=== PATIENT | male | born 1985 | race Native Hawaiian/Other Pacific Islander ===

== ENCOUNTER → 2016-07-04 | Outpatient (CLI) | payer OTHER | END | disposition home or self-care (01) | LOC: RADPV 13:25 | PROVIDERS: ATTEND Internal Medicine | DX: R76.11 Nonspecific reaction to tuberculin skin test without active tuberculosis (principal) ==

== ENCOUNTER 2017-01-21 00:30 | Emergency (ER) | payer OTHER ==
[~2017-01-21] VITALS: Ht 180.3 cm; Wt 80.9 kg
[2017-01-21 02:18] VITALS: BP 133/80
== END 2017-01-21 03:21 | disposition home or self-care (01) ==
LOC: EMS 00:31
DX: S20.212A Contusion of left front wall of thorax, initial encounter (principal); W51.XXXA Accidental striking against or bumped into by another person, initial encounter; Y93.89 Activity, other specified; Y92.89 Other specified places as the place of occurrence of the external cause; Y99.8 Other external cause status
CPT/HCPCS: 71101; 99284

== ENCOUNTER 2018-02-01 22:37 | Emergency (ER) | payer OTHER ==
[~2018-02-01] VITALS: Ht 180.3 cm; Wt 85.0 kg
[2018-02-01] MEDS ORDERED: CARISOPRODOL 350 MG TABLET PO ONE (23:30)
[2018-02-01] MEDS ORDERED: KETOROLAC TROMETHAMINE 60 MG/2 ML VIAL IM ONE (23:30)
[2018-02-01] MEDS ORDERED: DiphenhydrAMINE HCL 25 MG CAPSULE PO ONE (23:45)
[2018-02-02 01:45] VITALS: BP 140/80
== END 2018-02-02 01:51 | disposition home or self-care (01) ==
LOC: EMS 22:37
DX: M54.5 Low back pain (principal); M62.830 Muscle spasm of back; Z88.6 Allergy status to analgesic agent; X50.0XXA Overexertion from strenuous movement or load, initial encounter; Y93.68 Activity, volleyball (beach) (court); Y92.89 Other specified places as the place of occurrence of the external cause; Y99.8 Other external cause status
CPT/HCPCS: 72100; 73030; 96372; 99284; J1885

== ENCOUNTER 2019-12-23 08:39 | Emergency (ER) | payer OTHER ==
[~2019-12-23] VITALS: Ht 175.3 cm; Wt 75.0 kg
[2019-12-23 09:56] VITALS: BP 131/69
== END 2019-12-23 10:36 | disposition home or self-care (01) ==
LOC: EEVIPCON 08:43 → EMS 08:43
DX: Z20.828 Contact with and (suspected) exposure to other viral communicable diseases (principal); Z88.6 Allergy status to analgesic agent
CPT/HCPCS: 87426; 99283; U0003

== ENCOUNTER → 2020-02-24 | Outpatient (CLI) | payer OTHER ==
[2020-02-24 12:09] LABS: BASOPHILS % (AUTO) 0.3 % (0.0-2.0); EOSINOPHILS % (AUTO) 2.1 % (1.0-6.0); HEMOGLOBIN 17.8 g/dL (13.5-17.5); LYMPHOCYTES # (AUTO) 1.7 K/uL (1.0-4.8); LYMPHOCYTES % (AUTO) 31.8 % (22.0-44.0); MEAN CORPUSCULAR HEMOGLOBIN 30.4 pg (26.0-34.0); MEAN CORPUSCULAR HGB CONC 34.9 G/dL (31.0-37.0); MEAN CORPUSCULAR VOLUME 87 fL (80-100); MONOCYTES # (AUTO) 0.4 K/uL (0.1-1.0); MONOCYTES % (AUTO) 7.4 % (2.0-9.0); NEUTROPHILS # (AUTO) 3.2 K/uL (1.8-7.7); NEUTROPHILS % (AUTO) 58.4 % (40.0-70.0); PLATELET COUNT (AUTO) 178 K/uL (150-450); RED BLOOD CELL COUNT(AUTO) 5.86 MIL/uL (4.50-5.90); RED CELL DISTRIBUTION WIDTH 13.5 % (11.5-14.5)
[2020-02-24 12:32] LABS: ALANINE AMINOTRANSFERASE 28 U/L (12-78); ALBUMIN 4.1 g/dL (3.4-5.0); ALKALINE PHOSPHATASE 121 U/L (46-116); ANION GAP 11 mmol/L (8-16); ASPARTATE AMINOTRANSFERASE 16 U/L (15-37); BILIRUBIN,TOTAL 0.6 mg/dL (0.1-1.0); CALCIUM, TOTAL 8.5 mg/dL (8.8-10.5); CARBON DIOXIDE 24 mmol/L (22-29); CHLORIDE 102 mmol/L (98-107); CHOL/HDL RATIO 9.8 (4.2-7.3); CHOLESTEROL 216 mg/dL (131-200); CREATININE 0.93 mg/dL (0.60-1.30); GLOMERULAR FILTR. RATE CALC > 60 mL/min (>60); GLUCOSE,RANDOM 124 mg/dL (70-110); HDL CHOLESTEROL 22 mg/dL (40-60); POTASSIUM 4.3 mmol/L (3.5-5.1); SODIUM SERUM 137 mmol/L (136-145); TOTAL PROTEIN, SERUM 7.7 g/dL (6.4-8.2); TRIGLYCERIDES 1226 mg/dL (15-150); UREA NITROGEN, BLOOD 11 mg/dL (7-18)
[2020-02-24 12:54] LABS: URIC ACID 6.7 mg/dL (2.6-7.2)
[2020-02-24 15:15] LABS: HEMOGLOBIN A1C 5.1 % (3.8-5.6)
== END | disposition home or self-care (01) ==
LOC: LABPV 11:21
PROVIDERS: ATTEND Internal Medicine
DX: M10.9 Gout, unspecified (principal); I10 Essential (primary) hypertension
CPT/HCPCS: 83036; 84550

== ENCOUNTER → 2020-02-27 | Outpatient (CLI) | payer OTHER | END | disposition home or self-care (01) | LOC: RADPV 09:59 | PROVIDERS: ATTEND Internal Medicine | DX: R07.9 Chest pain, unspecified (principal) | CPT/HCPCS: 71046; 71046-TC ==

== ENCOUNTER → 2020-04-28 | Outpatient (CLI) | payer OTHER ==
[2020-04-28 14:03] LABS: CHOL/HDL RATIO 4.2 (4.2-7.3)
== END | disposition home or self-care (01) ==
LOC: LABPV 12:01
PROVIDERS: ATTEND Internal Medicine Endocrinology, Diabetes & Metabolism
DX: R73.01 Impaired fasting glucose (principal)
CPT/HCPCS: 82043; 82570; 82947

== ENCOUNTER → 2023-06-21 | Outpatient (CLI) | payer OTHER ==
[2023-06-21 10:00] LABS: BASOPHILS % (AUTO) 1.1 % (0.0-2.0); HEMOGLOBIN 15.4 g/dL (13.5-17.5); LYMPHOCYTES # (AUTO) 1.6 K/uL (1.0-4.8); LYMPHOCYTES % (AUTO) 28.8 % (22.0-44.0); MEAN CORPUSCULAR HEMOGLOBIN 29.3 pg (26.0-34.0); MEAN CORPUSCULAR HGB CONC 34.3 G/dL (31.0-37.0); MEAN CORPUSCULAR VOLUME 86 fL (80-100); MONOCYTES # (AUTO) 0.3 K/uL (0.1-1.0); MONOCYTES % (AUTO) 6.1 % (2.0-9.0); NEUTROPHILS # (AUTO) 3.3 K/uL (1.8-7.7); PLATELET COUNT (AUTO) 214 K/uL (150-450); RED BLOOD CELL COUNT(AUTO) 5.26 MIL/uL (4.50-5.90); RED CELL DISTRIBUTION WIDTH 13.1 % (11.5-14.5); WHITE BLOOD COUNT (AUTO) 5.6 K/uL (4.5-11.0)
[2023-06-21 10:12] LABS: HEMOGLOBIN A1C 5.3 % (3.8-5.6)
[2023-06-21 10:29] LABS: ALANINE AMINOTRANSFERASE 41 U/L (12-78); ALBUMIN 4.1 g/dL (3.4-5.0); ALKALINE PHOSPHATASE 68 U/L (46-116); ANION GAP 11 mmol/L (8-16); ASPARTATE AMINOTRANSFERASE 19 U/L (15-37); BILIRUBIN,TOTAL 0.4 mg/dL (0.1-1.0); CARBON DIOXIDE 25 mmol/L (22-29); CHLORIDE 102 mmol/L (98-107); CHOL/HDL RATIO 5.6 (4.2-7.3); CHOLESTEROL 157 mg/dL (131-200); CREATININE 0.99 mg/dL (0.60-1.30); GLOMERULAR FILTR. RATE CALC > 60 mL/min (>60); GLUCOSE,RANDOM 110 mg/dL (70-110); HDL CHOLESTEROL 28 mg/dL (40-60); POTASSIUM 3.6 mmol/L (3.5-5.1); SODIUM SERUM 138 mmol/L (136-145); THYROID STIMULATING HORMONE 2.43 uIU/mL (0.36-3.74); TOTAL PROTEIN, SERUM 7.9 g/dL (6.4-8.2); TRIGLYCERIDES 699 mg/dL (15-150); UREA NITROGEN, BLOOD 19 mg/dL (7-18)
[2023-06-22 13:06] LABS: CREATININE, URINE (mALB) 147.3 mg/dL (Not Estab.)
== END | disposition home or self-care (01) ==
LOC: LABMN 09:32
PROVIDERS: ATTEND Internal Medicine
DX: R73.09 Other abnormal glucose (principal); E78.5 Hyperlipidemia, unspecified; E55.9 Vitamin D deficiency, unspecified
CPT/HCPCS: 80053; 80061; 82043; 82306; 82570; 83036; 84443; 85025

== ENCOUNTER → 2023-08-04 | Outpatient (CLI) | payer OTHER ==
[2023-08-04 12:40] LABS: APPEARANCE,URINE HAZY (CLEAR); BILIRUBIN,URINE NEGATIVE (NEGATIVE); COLOR,URINE LIGHT YELLOW (YELLOW); GLUCOSE, URINE (UA) NEGATIVE (NEGATIVE); KETONES,URINE NEGATIVE (NEGATIVE); LEUKOCYTE ESTERASE ,URINE NEGATIVE (NEGATIVE); NITRATE,URINE NEGATIVE (NEGATIVE); OCCULT BLOOD,URINE NEGATIVE (NEGATIVE); PH,URINE 7.5 (5.0-8.0); PROTEIN,URINE TRACE mg/dL (NEGATIVE); SPECIFIC GRAVITIY, URINE 1.024 (1.003-1.030); UROBILINOGEN,URINE <=1.0 mg/dL (<=1.0)
[2023-08-04 12:55] LABS: ALANINE AMINOTRANSFERASE 37 U/L (12-78); ALBUMIN 4.2 g/dL (3.4-5.0); ALKALINE PHOSPHATASE 61 U/L (46-116); ANION GAP 14 mmol/L (8-16); ASPARTATE AMINOTRANSFERASE 20 U/L (15-37); BILIRUBIN,TOTAL 0.5 mg/dL (0.1-1.0); CALCIUM, TOTAL 8.8 mg/dL (8.8-10.5); CARBON DIOXIDE 22 mmol/L (22-29); CHLORIDE 105 mmol/L (98-107); CHOL/HDL RATIO 5.2 (4.2-7.3); CHOLESTEROL 151 mg/dL (131-200); GLOMERULAR FILTR. RATE CALC > 60 mL/min (>60); GLUCOSE,RANDOM 119 mg/dL (70-110); HDL CHOLESTEROL 29 mg/dL (40-60); POTASSIUM 3.2 mmol/L (3.5-5.1); SODIUM SERUM 141 mmol/L (136-145); TOTAL PROTEIN, SERUM 8.2 g/dL (6.4-8.2); TRIGLYCERIDES 447 mg/dL (15-150); UREA NITROGEN, BLOOD 16 mg/dL (7-18)
== END | disposition home or self-care (01) ==
LOC: LABMN 12:09
PROVIDERS: ATTEND Internal Medicine
DX: E78.2 Mixed hyperlipidemia (principal); R73.09 Other abnormal glucose; N39.0 Urinary tract infection, site not specified
CPT/HCPCS: 80053; 80061; 81003

== ENCOUNTER → 2023-10-26 | Outpatient (CLI) | payer OTHER ==
[2023-10-26 11:52] LABS: BASOPHILS % (AUTO) 0.9 % (0.0-2.0); EOSINOPHILS % (AUTO) 3.3 % (1.0-6.0); HEMATOCRIT 48.6 % (41-53); HEMOGLOBIN 16.2 g/dL (13.5-17.5); LYMPHOCYTES # (AUTO) 1.2 K/uL (1.0-4.8); LYMPHOCYTES % (AUTO) 24.4 % (22.0-44.0); MEAN CORPUSCULAR HEMOGLOBIN 28.7 pg (26.0-34.0); MEAN CORPUSCULAR HGB CONC 33.4 G/dL (31.0-37.0); MEAN CORPUSCULAR VOLUME 86 fL (80-100); MONOCYTES # (AUTO) 0.4 K/uL (0.1-1.0); MONOCYTES % (AUTO) 7.2 % (2.0-9.0); NEUTROPHILS # (AUTO) 3.2 K/uL (1.8-7.7); NEUTROPHILS % (AUTO) 64.2 % (40.0-70.0); PLATELET COUNT (AUTO) 234 K/uL (150-450); RED BLOOD CELL COUNT(AUTO) 5.67 MIL/uL (4.50-5.90); RED CELL DISTRIBUTION WIDTH 13.9 % (11.5-14.5)
[2023-10-26 12:06] LABS: HEMOGLOBIN A1C 5.4 % (3.8-5.6)
[2023-10-26 12:10] LABS: ALANINE AMINOTRANSFERASE 41 U/L (12-78); ALBUMIN 4.8 g/dL (3.4-5.0); ALKALINE PHOSPHATASE 62 U/L (46-116); ANION GAP 8 mmol/L (8-16); ASPARTATE AMINOTRANSFERASE 23 U/L (15-37); BILIRUBIN,TOTAL 0.7 mg/dL (0.1-1.0); CALCIUM, TOTAL 9.5 mg/dL (8.8-10.5); CARBON DIOXIDE 28 mmol/L (22-29); CHLORIDE 103 mmol/L (98-107); CHOLESTEROL 159 mg/dL (131-200); CREATININE 1.12 mg/dL (0.60-1.30); GLOMERULAR FILTR. RATE CALC > 60 mL/min (>60); GLUCOSE,RANDOM 95 mg/dL (70-110); POTASSIUM 3.8 mmol/L (3.5-5.1); SODIUM SERUM 139 mmol/L (136-145); THYROID STIMULATING HORMONE 1.83 uIU/mL (0.36-3.74); TOTAL PROTEIN, SERUM 8.8 g/dL (6.4-8.2); TRIGLYCERIDES 369 mg/dL (15-150); UREA NITROGEN, BLOOD 18 mg/dL (7-18)
[2023-10-26 12:32] LABS: CHOL/HDL RATIO 4.7 (4.2-7.3); HDL CHOLESTEROL 34 mg/dL (40-60); LDL CHOL (CALC.) 51 mg/dL (0-130)
[2023-10-27 09:07] LABS: CREATININE, URINE (mALB) 206.1 mg/dL (Not Estab.)
[2023-10-28 12:07] LABS: QUANTIFERON+,Mitogen Value >10.00 IU/mL; QUANTIFERON+,TB1 Antigen Value 3.52 IU/mL; QUANTIFERON+,TB2 Antigen Value 3.62 IU/mL; QUANTIFERON, TB GOLD PLUS Positive (Negative)
== END | disposition home or self-care (01) ==
LOC: LABMN 11:12
PROVIDERS: ATTEND Internal Medicine
DX: E78.5 Hyperlipidemia, unspecified (principal); R73.09 Other abnormal glucose; E55.9 Vitamin D deficiency, unspecified; I10 Essential (primary) hypertension; Z20.1 Contact with and (suspected) exposure to tuberculosis
CPT/HCPCS: 80053; 80061; 82043; 82306; 82570; 83036; 84443; 85025; 86480